=== PATIENT | female | born 1975 | race Caucasian/White ===

== ENCOUNTER 2017-03-13 00:35 | Observation (INO) | payer OTHER ==
[2017-03-13 02:08] LABS: Basophils % (Auto) 0.6 % (0.0-1.8); Eosinophils % (Auto) 1.2 % (0.0-4.3); Hematocrit 40.7 % (30.3-42.9); Hemoglobin 13.7 gm/dl (10.1-14.3); Mean Corpuscular HGB Conc 34 % (30-34); Mean Corpuscular Hemoglobin 27 pg (28-32); Mean Corpuscular Volume 81 fl (79-97); Platelet Count 314 K/mm3 (140-440); Red Blood Count 5.01 M/mm3 (3.65-5.03); Red Cell Distribution Width 15.1 % (13.2-15.2); White Blood Count 12.9 K/mm3 (4.5-11.0)
[2017-03-13 02:25] LABS: Alanine Aminotransferase 122 units/L (7-56); Albumin 4.1 g/dL (3.9-5); Albumin/Globulin Ratio 1.1 %; Alkaline Phosphatase 121 units/L (35-129); Anion Gap 17 mmol/L; BUN/Creatinine Ratio 16.66; Blood Urea Nitrogen 10 mg/dL (7-17); Calcium 8.9 mg/dL (8.4-10.2); Carbon Dioxide 28 mmol/L (22-30); Chloride 95.5 mmol/L (98-107); Glucose 113 mg/dL (65-100); Lipase 31 units/L (13-60); Potassium 3.6 mmol/L (3.6-5.0); Sodium 137 mmol/L (137-145)
[2017-03-13 03:38] LABS: Mucus,Urine 1+ /HPF
[2017-03-13 03:47] LABS: Bilirubin,Urine NEG (Negative); Blood,Urine SM (Negative); Ketones,Urine NEG (Negative); Leukocyte Esterase,Urine NEG (Negative); Nitrite,Urine NEG (Negative); Protein,Urine <15 mg/dL mg/dL (Negative)
[2017-03-13] MEDS ORDERED: REGLAN IV ONE (05:17)
[2017-03-13] MEDS ORDERED: PEPCID IV ONE (05:17)
--- NOTE | 2017-03-13 05:23 | Emergency Department Report ---
HPI - HPI HPI: Patient is a 42-year-old female a history of hypertension on medication presents to ED complaining of mid upper abdominal pain that started last night patient states after she ate dinner she started to experience sharp, pain in her abdomen. Patient states she took Pepto-Bismol and was a bit relieved and then later on the pain started patient states she took another dose of Pepto- Bismol with no relief. Patient states at midnight the pain got worse so she came to the ED. Patient describes pain as a churning type pain that has no relief when she burps. Patient denies any diarrhea, fever, vomiting, chest pain. Patient states pain is sometimes in her mid back region. <DAVE MARSHALL - Last Filed: 03/13/17 06:59> <LLUVIA RODRIGEZ - Last Filed: 03/13/17 10:21> - General Chief Complaint: Abdominal Pain Time Seen by Provider: 03/13/17 03:45 ED Past Medical Hx - Past Medical History Previous Medical History?: Yes Hx Hypertension: Yes - Surgical History Past Surgical History?: No - Social History Smoking Status: Never Smoker Substance Use Type: None <DAVE MARSHALL - Last Filed: 03/13/17 06:59> ED Review of Systems ROS: Stated complaint: ABD PAIN Other details as noted in HPI Constitutional: denies: chills, fever Eyes: denies: eye pain, eye discharge, vision change ENT: denies: ear pain, throat pain Respiratory: denies: cough, shortness of breath, wheezing Cardiovascular: denies: chest pain, palpitations Endocrine: no symptoms reported Gastrointestinal: denies: abdominal pain, nausea, diarrhea Genitourinary: denies: urgency, dysuria, discharge Musculoskeletal: denies: back pain, joint swelling, arthralgia Skin: denies: rash, lesions Neurological: denies: headache, weakness, paresthesias Psychiatric: denies: anxiety, depression Hematological/Lymphatic: denies: easy bleeding, easy bruising <DAVE MARSHALL - Last Filed: 03/13/17 06:59> ROS: Stated complaint: ABD PAIN Other details as noted in HPI <LLUVIA RODRIGEZ - Last Filed: 03/13/17 10:21> Physical Exam - Physical Exam Vital Signs: Vital Signs 03/13/17 01:09 Temperature 98 F Pulse Rate 78 Respiratory 18 Rate Blood Pressure 149/93 O2 Sat by Pulse 100 Oximetry General: GENERAL: Alert and oriented x3, no apparent distress, Normal Gait, atraumatic. HEAD: Head is normocephalic and a-traumatic. EYES: Extra ocular muscles are intact. Pupils are equal, round, and reactive to light and accommodation. EARS: symetrical, atraumatic, non tender, ear canal clear and moderate cerumen, tympanic membrance non inflamed. gross auditory nml bilaterally. NOSE: Nose symetrical, Nontender,Nares appeared normal. MOUTH:Mouth is well hydrated and without lesions. Tonsils nonerythematous or swollen, Uvula midline, Tongue not elevated. Mucous membranes are moist. Posterior pharynx clear, no exudate or lesions. Patent airways. NECK: Supple. Non edematous, No carotid bruits. No lymphadenopathy or thyromegaly. No C-spine tenderness LUNGS: Symetrical with respiration, No wheezing, no rales or crackles, CTAB. HEART: S1, S2 present, regular rate and rhythm without murmur, no rubs, no gallops. Non tender to palpation ABDOMEN: No organomegaly was noted,Positive bowel sounds, soft, and non- distended. . tender to palpation on upper mid Quadrant, NO CVA tenderness. BACK: Full range of motion, no spinal tenderness, nontender to palpation. PSYCHIATRIC: Mood is congruent with affect, denies suicidal or homicidal ideations. SKIN: Warm and dry, No lesions, No ulceration or induration present. <DAVE MARSHALL - Last Filed: 03/13/17 06:59> - Physical Exam Vital Signs: Vital Signs 03/13/17 01:09 Temperature 98 F Pulse Rate 78 Respiratory 18 Rate Blood Pressure 149/93 O2 Sat by Pulse 100 Oximetry <LLUVIA RODRIGEZ - Last Filed: 03/13/17 10:21> ED Course Vital Signs 03/13/17 01:09 Temperature 98 F Pulse Rate 78 Respiratory 18 Rate Blood Pressure 149/93 O2 Sat by Pulse 100 Oximetry - Reevaluation(s) Reevaluation #1: Patient is resting comfortable in the ED room, sleeping, she states she feels much better. She is about to be taken to CT 03/13/17 06:24 <DAVE MARSHALL - Last Filed: 03/13/17 06:59> Vital Signs 03/13/17 01:09 Temperature 98 F Pulse Rate 78 Respiratory 18 Rate Blood Pressure 149/93 O2 Sat by Pulse 100 Oximetry - Reevaluation(s) Reevaluation #2: 03/13/17 09:54 Patient is resting in bed comfortably with no signs of distress. Reevaluation #3: 03/13/17 09:56 Patient was notified of admission and agrees to the treatment plan with no signs noted by the patient. - Consultations Consultation #1: 03/13/17 09:55 Dr. Gallegos consulted about patient and agrees to admission and treatment plan in the ED. Consultation #2: 03/13/17 10:[address] Guerrero and accepted patient to his services. <LLUVIA RODRIGEZ - Last Filed: 03/13/17 10:21> ED Medical Decision Making - Lab Data Result diagrams: 03/13/17 01:40 03/13/17 01:40 Laboratory Results - last 24 hr 03/13/17 03/13/17 03/13/17 01:21 01:40 01:40 WBC 12.9 H RBC 5.01 Hgb 13.7 Hct 40.7 MCV 81 MCH 27 L MCHC 34 RDW 15.1 Plt Count 314 Lymph % (Auto) 17.3 Burt % (Auto) 8.0 H Eos % (Auto) 1.2 Baso % (Auto) 0.6 Lymph # 2.2 Burt # 1.0 H Eos # 0.2 Baso # 0.1 Seg Neutrophils % 72.9 H Seg Neutrophils # 9.4 H Sodium 137 Potassium 3.6 Chloride 95.5 L Carbon Dioxide 28 Anion Gap 17 BUN 10 Creatinine 0.6 L Estimated GFR > 60 BUN/Creatinine Ratio 16.66 Glucose 113 H Calcium 8.9 Total Bilirubin 1.10 AST 195 H ALT 122 H Alkaline Phosphatase 121 Total Protein 8.0 Albumin 4.1 Albumin/Globulin Ratio 1.1 Lipase 31 HCG, Qual Urine Color Yellow Urine Turbidity Clear Urine pH 5.0 Ur Specific Scalf 1.019 Urine Protein <15 mg/dl Urine Glucose (UA) Neg Urine Ketones Neg Urine Blood Sm Urine Nitrite Neg Ur Reducing Substances Not Reportable Urine Bilirubin Neg Urine Ictotest Not Reportable Urine Urobilinogen 4.0 Ur Leukocyte Esterase Neg Urine WBC (Auto) 2.0 Urine RBC (Auto) 1.0 U Epithel Cells (Auto) 2.0 Urine Mucus 1+ 03/13/17 01:40 WBC RBC Hgb Hct MCV MCH MCHC RDW Plt Count Lymph % (Auto) Burt % (Auto) Eos % (Auto) Baso % (Auto) Lymph # Burt # Eos # Baso # Seg Neutrophils % Seg Neutrophils # Sodium Potassium Chloride Carbon Dioxide Anion Gap BUN Creatinine Estimated GFR BUN/Creatinine Ratio Glucose Calcium Total Bilirubin AST ALT Alkaline Phosphatase Total Protein Albumin Albumin/Globulin Ratio Lipase HCG, Qual Negative Urine Color Urine Turbidity Urine pH Ur Specific Scalf Urine Protein Urine Glucose (UA) Urine Ketones Urine Blood Urine Nitrite Ur Reducing Substances Urine Bilirubin Urine Ictotest Urine Urobilinogen Ur Leukocyte Esterase Urine WBC (Auto) Urine RBC (Auto) U Epithel Cells (Auto) Urine Mucus - Radiology Data Radiology results: report reviewed, image reviewed FINAL REPORT PROCEDURE: CT ABDOMEN PELVIS W CON TECHNIQUE: Computerized axial tomography of the abdomen and pelvis was performed after the IV injection of iodinated nonionic contrast. HISTORY: upper quad mid abd pain COMPARISON: No prior studies are available for comparison. FINDINGS: Visualized lower thorax: No significant abnormality. Liver: Normal size and attenuation. Spleen: Normal size and attenuation. Gallbladder and biliary system: The gallbladder lumen is slightly distended. Mild prominence of the common bile duct. No stones are detected on this study. Further evaluation with ultrasound is recommended.. Pancreas: Normal. Adrenals: Normal. Kidneys: Normal. GI tract: The stomach is normal. The small bowel has a normal caliber without obstruction. No ileus or enteritis. The cecum, appendix and colon are normal.. Lymph nodes and mesentery: Normal. Vasculature: Normal. Bladder: There is some thickening of the urinary bladder wall. Cystitis is possible.. Reproductive organs: The uterus is normal. There is a cystic structure in the left ovary adnexal region this measures up to 6.7 x 3.8 centimeters. A large cyst on the left ovary is suspected. Further evaluation with ultrasound is recommended.. Peritoneum: No free fluid. Musculoskeletal structures: No significant abnormality. Other: None. IMPRESSION: There is no evidence of intestinal or urinary tract obstruction. No ileus or enteritis. Slightly distended gallbladder lumen with slight prominence of the common bile duct. Further evaluation with ultrasound is recommended. Large cystic mass in the left adnexal ovary region this measures up to 6.7 centimeters, further evaluation with ultrasound is recommended. Slight thickening of the urinary bladder wall, cystitis is possible. Transcribed By: [facility] Dictated By: ELISABETH DAVIS MD Electronically Authenticated By: ELISABETH DAVIS MD Signed Date/Time: 03/13/17 0651 - Medical Decision Making 42-year-old female presents with ED course: CBC, CMP, urinalysis, CTs scan of the abdomen ordered CBC shows mild leukocytosis, elevated AST and ALTs, urinalysis negative CT scan of the abdomen shows: Results indicated above Discussed findings with patient. Need to r/o cholecystitis, Abdominal ultrasound ordered.: Results pending Patient was signed to my colleague Lluvia Rodrigez NP <DAVE MARSHALL - Last Filed: 03/13/17 06:59> - Lab Data Result diagrams: 03/13/17 01:40 03/13/17 01:40 - Medical Decision Making Patient is resting comfortably and hemodynamically stable. Dr. Pereyra was consulted and examined the patient. Agrees to admission for acute cholecystitis. Instructed patient to received Zosyn 3.375 g IV in the ED. Patient was put on a monitoring specialist with O2 2 L. Patient is nothing by mouth. Dr. Guerrero was consulted about patient and agrees to accepting patient to his services. <LLUVIA RODRIGEZ - Last Filed: 03/13/17 10:21> Critical care attestation.: If time is entered above; I have spent that time in minutes in the direct care of this critically ill patient, excluding procedure time. <DAVE MARSHALL - Last Filed: 03/13/17 06:59> Critical care attestation.: If time is entered above; I have spent that time in minutes in the direct care of this critically ill patient, excluding procedure time. <LLUVIA RODRIGEZ - Last Filed: 03/13/17 10:21> ED Disposition <DAVE MARSHALL - Last Filed: 03/13/17 06:59> Is pt being admited?: Yes <LLUVIA RODRIGEZ - Last Filed: 03/13/17 10:21> Clinical Impression: Acute cholecystitis Disposition: DC-09 OP ADMIT IP TO THIS HOSP Condition: Stable
[2017-03-13] MEDS ORDERED: NACL 0.9% 1000 ML 1,000 ML IV ONE (05:24)
[2017-03-13] MEDS ORDERED: NACL ONE (05:31)
--- NOTE | 2017-03-13 06:57 | Cat Scan Report ---
FINAL REPORT PROCEDURE: CT ABDOMEN PELVIS W CON TECHNIQUE: Computerized axial tomography of the abdomen and pelvis was performed after the IV injection of iodinated nonionic contrast. HISTORY: upper quad mid abd pain COMPARISON: No prior studies are available for comparison. FINDINGS: Visualized lower thorax: No significant abnormality. Liver: Normal size and attenuation. Spleen: Normal size and attenuation. Gallbladder and biliary system: The gallbladder lumen is slightly distended. Mild prominence of the common bile duct. No stones are detected on this study. Further evaluation with ultrasound is recommended.. Pancreas: Normal. Adrenals: Normal. Kidneys: Normal. GI tract: The stomach is normal. The small bowel has a normal caliber without obstruction. No ileus or enteritis. The cecum, appendix and colon are normal.. Lymph nodes and mesentery: Normal. Vasculature: Normal. Bladder: There is some thickening of the urinary bladder wall. Cystitis is possible.. Reproductive organs: The uterus is normal. There is a cystic structure in the left ovary adnexal region this measures up to 6.7 x 3.8 centimeters. A large cyst on the left ovary is suspected. Further evaluation with ultrasound is recommended.. Peritoneum: No free fluid. Musculoskeletal structures: No significant abnormality. Other: None. IMPRESSION: There is no evidence of intestinal or urinary tract obstruction. No ileus or enteritis. Slightly distended gallbladder lumen with slight prominence of the common bile duct. Further evaluation with ultrasound is recommended. Large cystic mass in the left adnexal ovary region this measures up to 6.7 centimeters, further evaluation with ultrasound is recommended. Slight thickening of the urinary bladder wall, cystitis is possible.
--- NOTE | 2017-03-13 08:57 | Ultrasound Report ---
ULTRASOUND ABDOMEN COMPLETE: Technique: Transabdominal ultrasound with color Doppler interrogation. History: Right upper quadrant abdominal pain. Findings: CT abdomen pelvis with contrast performed the same day was reviewed. The liver is normal size, contour and echotexture. The gallbladder is not distended but there is mild diffuse gallbladder wall thickening measuring 4.9 mm. A mild degree of sludge is noted near the gallbladder neck. No discrete shadowing gallstones are appreciated. The CBD measures 5 mm. The visualized portions of the pancreas including the head and proximal body are within normal limits. The kidneys demonstrate no hydronephrosis or mass. Cortical thickness and echogenicity are within normal limits bilaterally. The spleen and aorta are within normal limits. No aneurysmal dilatation is noted. No ascites. IMPRESSION: Sludge in the gallbladder. Mild gallbladder wall thickening but no abnormal distention or pericholecystic fluid. These findings are equivocal for acute cholecystitis.
[2017-03-13] MEDS ORDERED: ZOSYN/NS 3.375GM/50ML 3.375 GM/50 ML BAG IV ONE (10:00)
--- NOTE | 2017-03-13 10:58 | Admit Criteria Form ---
Admission Criteria Documentation: GALLBLADDER OR BILE DUCT INFLAMMATION OR STONE Clinical Indications for Admission to Inpatient Care ( zuni/check or initial the applicable condition/criteria) Admission is indicated for patients with ANY ONE of the following(1)(2)(3)(4)(5) (6): [X]I. Acute cholecystitis as indicated by ALL of the following: [ X] a) Right upper quadrant pain, mass, or tenderness [ X] b) Systemic signs of inflammation indicated by ANY ONE of the following: i) Fever ii) C-reactive protein level greater than 10 mg/L (95 nmol/L) [ X] iii) White blood cell count greater than 10,000/mm3 (10 x10 9/L) or less than 4000/mm3 (4 x10 9/L) II. Acute cholangitis as indicated by ALL of the following(9)(10): a) Systemic signs of inflammation indicated by ANY ONE of the following: i) Fever ii) C-reactive protein level greater than 10 mg/L (95 nmol/L) iii) White blood cell count greater than 10,000/mm3 (10 x109/L ) or less than 4000/mm3 (4 x109/L) b) Evidence of common bile duct disease indicated by ANY ONE of the following: [ ]i) Total serum bilirubin level greater than or equal to 2 mg/dL (34 micromoles/L) [ ]ii) Liver function test (alkaline phosphatase (ALP), r- glutamyltransferase (GGT), aspartate aminotransferase (AST), or alanine aminotransferase (ALT)) greater than 1.5 times the upper limit of normal[B] [ ]iii) Hepatobiliary imaging showing biliary dilatation or evidence of etiology (eg, stricture, stone, previously placed stent) III. Inpatient admission[c] required rather than observation care (Also use Gallbladder or Bile Duct Inflammation or Stone: Observation Care as appropriate) because of ANY ONE of the following( 11): a) Common bile duct obstruction diagnosed (eg, by imaging) b) Vomiting that is severe or persistent c) Dehydration that is severe or persistent d) Hemodynamic instability e) Severe pain requiring acute inpatient management f) Absent bowel sounds with complete ileus(12) g) Signs of intestinal obstruction or peritonitis[D] h) Percutaneous or open drainage (eg, abscess, biliary tract) procedures i) Other condition, treatment or monitoring requiring inpatient admission j) High fever or infection requiring inpatient admission as indicated by ANY ONE of the following (13): i) Appropriate outpatient or observation care antimicrobial Treatment. unavailable, not effective, or not feasible ii) Documented bacteremia iii) Temperature greater than 104.9 degrees F (40.5 degrees C) ( oral) iv) Temperature greater than 103.1 degrees F (39.5 degrees C) ( oral) or less than 96.8 degrees F (36 degrees C) (rectal) that does not respond to all emergency treatment measures The original [facility] content created by [facility] [employer] has been revised. The portions of the content which have been revised are identified through the use of italic text or in bold, and [facility] has neither reviewed nor approved the modified material. All other unmodified content is copyright [facility]. Please see references footnoted in the original [facility] edition 2017 Admission Criteria Met: Yes
[2017-03-13] MEDS ORDERED: ZOSYN/NS 3.375GM/50ML 50 ML IV SCH (12:00)
--- NOTE | 2017-03-13 12:08 | History and Physical Report ---
History of Present Illness Date of examination: 03/13/17 Date of admission: 03/13/17 10:14 Chief complaint: epigastric abd pain History of present illness: Pleasant 42 year female with 12-24 hr hx of severe epigastric pain, 10/10, some nausea, WBC 12K, AST /ALT elevated, T bili normal, CT abd pelvis questions GB otherwise WNL, u/s RUQ, sludge, mild wall thickening, no pericholecystic fluid. No hx of jaundice or hepatitis. Past History Past Surgical History: Other (one child, uncomplicated delivery.) Social history: no significant social history Medications and Allergies Allergies Allergy/AdvReac Type Severity Reaction Status Date / Time No Known Allergies Allergy Unverified 03/13/17 01:08 Home Medications Medication Instructions Recorded Confirmed Last Taken Type FLUoxetine HCL [FLUoxetine] 60 mg PO QDAY 03/13/17 03/13/17 03/12/17 History Fluticasone [Flonase] 1 spray NS QDAY 03/13/17 03/13/17 03/12/17 History Hydrochlorothiazide [HCTZ] 25 mg PO QDAY 03/13/17 03/13/17 03/12/17 History Review of Systems - Constitutional other (RUQ abd pain) Exam Vital Signs Temp Pulse Resp BP Pulse Ox 98 F 78 18 149/93 100 03/13/17 01:09 03/13/17 01:09 03/13/17 01:09 03/13/17 01:09 03/13/17 01:09 - General physical appearance Positive: no distress - Eyes Positive: PERRL, normal occular movement - ENT Positive: normal pinna, normal nares, normal mucosa, no hearing loss, no congestion - Neck Positive: no masses, no bruits, trachea midline, no venous distension - Respiratory Positive: normal expansion, normal respiratory effort, clear to auscultation - Cardiovascular Rhythm: regular Heart Sounds: Present: S1 & S2. Absent: rub, click - Extremities Extremities: no ischemia, pulses symmetrical, No edema Peripheral Pulses: within normal limits - Breasts Breasts: normal - Abdomen Abdomen: Present: soft, bowel sounds normal (tender to deep palpation RUQ, negative Mora's sign.) Hernia: none - Neurologic Neurologic: alert and oriented to time, place and person, motor strength and sensation are grossly intact Results - Labs 03/13/17 01:40 03/13/17 01:40 Assessment and Plan abd pain, CT , ultrasound findings noted Get HIDA scan.r/o cystic duct obstruction.
[2017-03-13] MEDS ORDERED: DULCOLAX PR PRN (12:09)
[2017-03-13] MEDS ORDERED: ZOFRAN IV PRN (12:09)
[2017-03-13] MEDS ORDERED: TYLENOL PO PRN (12:09)
[2017-03-13] MEDS ORDERED: MORPHINE IV PRN (12:09)
[2017-03-13] MEDS ORDERED: MILK OF MAGNESIA PO PRN (12:09)
[2017-03-13] MEDS ORDERED: D5NS 1,000 ML IV SCH (13:00)
[2017-03-13] MEDS ORDERED: ZOSYN/NS 4.5GM/100ML 4.5 GM/100 ML VIAL IV SCH (14:00)
[2017-03-13] MEDS ORDERED: KINEVAC IV ONE ×2 (14:46→14:48)
[2017-03-13] MEDS ORDERED: WATER FOR INJ (PF) IV ONE (14:47)
[2017-03-13] MEDS ORDERED: WATER FOR INJ (PF) 10 ML ONE (14:48)
--- NOTE | 2017-03-13 15:07 | Discharge Summary ---
Providers - Providers Date of Admission: 03/13/17 10:14 Date of discharge: 03/13/17 Attending physician: JORDY HANEY Primary care physician: [employer]IC[employer] Hospitalization Reason for admission: abd pain Condition: Good Pertinent studies: CT abd pelvis, ultrasound RUQ, HIDA scan Hospital course: Pt seen in ER with severe epigastric RUQ pain, WBC 12, AST /ALT elevated, Tbili normal, CT abd pelvis questioned GB, recc u/s GB, sludge , mild wall thickening , no pericholecystic fluid, HIDA scan with prompt visualization of GB; Pt discharged home. F/U at [place] with her primary care. Disposition: DC- TO HOME OR SELFCARE Time spent for discharge: 20 min Core Measure Documentation - Palliative Care Palliative Care/ Comfort Measures: Not Applicable - Core Measures Any of the following diagnoses?: none Exam - Constitutional Vitals: Temp Pulse Resp BP Pulse Ox 97.6 F 56 L 18 123/79 99 03/13/17 12:18 03/13/17 12:18 03/13/17 12:18 03/13/17 12:18 03/13/17 12:18 General appearance: Present: no acute distress - EENT Eyes: Present: PERRL ENT: hearing intact, clear oral mucosa - Neck Neck: Present: supple, normal ROM - Respiratory Respiratory effort: normal - Cardiovascular Rhythm: regular Heart Sounds: Present: S1 & S2. Absent: rub, click - Extremities Extremities: no ischemia, pulses intact Peripheral Pulses: within normal limits - Abdominal General gastrointestinal: Present: soft, non-tender (negative Mora's sign, right upper quadrant tenderness resolved.), non-distended, normal bowel sounds - Psychiatric Psychiatric: appropriate mood/affect, intact judgment & insight - Neurologic Neurologic: CNII-XII intact, moves all extremities Plan Weight Bearing Status: Full Weight Bearing Diet: low fat (lev) Wound: open to air Follow up with: PRIMARY CARE, [Primary Care Provider] - 7 Days Prescriptions: Levofloxacin [Levaquin TAB] 500 mg PO Q24HR #7 tablet oxyCODONE /ACETAMINOPHEN [Percocet 5/325 mg] 1 tab PO Q6H PRN #10 tablet PRN Reason: Pain, Moderate (4-6)
[2017-03-13] MEDS ORDERED: PERCOCET 5/325 PO PRN (15:10)
--- NOTE | 2017-03-13 15:38 | Nuclear Medicine Report ---
NUCLEAR MEDICINE HEPATOBILIARY SCAN WITH CCK History: Right upper quadrant abdominal pain, evaluate for cholecystitis. Findings: Anterior abdominal images were obtained for 2 hours after 5 mCi of technetium 99m Choletec. There is homogeneous uptake of the radiotracer by the liver parenchyma. There is normal appearance of the radiotracer in the central biliary ducts, gallbladder and common bile duct. There is however delayed visualization of the radiotracer in the small bowel loops. Please note that the patient received morphine in the emergency department which contracts the sphincter of Oddi and makes this study very limited. After the administration of CCK, the gallbladder ejection fraction measures 0%. The patient reports the same pain, cramps and nausea following the infusion of CCK. Impression: The cystic duct is patent. No evidence for acute cholecystitis. There is nonvisualization of the radiotracer in the small bowel. This could suggest partial obstruction of the common bile duct. This study is compromised because the ER physician administered morphine in the emergency department which could account for these findings as well. I cannot rule in or rule out sludge or small stone in the distal common bile duct. I suspect this is secondary to morphine administration. These findings were discussed with Dr. Guerrero at 1531 hrs.
[2017-03-13 16:38] VITALS: BP 122/78
--- NOTE | 2017-03-14 02:40 | Discharge Summary ---
HOSPITAL COURSE: This is a 42-year-old female who presented to the Emergency Room with severe 9/10 epigastric right upper quadrant pain with mild nausea. She presented to the Emergency Room and her lab work showed a white count of 12,000. Her AST and ALT were mildly elevated at 195 for AST and 122 for her ALT and her alkaline phosphatase were normal. Her total bilirubin was normal. Her lipase was normal. Her test was negative. She subsequently underwent a CT scan of the abdomen and pelvis that demonstrated a question of the gallbladder lumen being slightly distended, mild prominence of the common duct( but diameter of CBD was normal with no dialation of proximal bile ducts.. No stones were detected and as a result, the report recommended an ultrasound of the right upper quadrant. The patient had an ultrasound of the right upper quadrant, which demonstrated sludge in the gallbladder, mild gallbladder wall thickening but no abnormal distention or pericholecystic fluid. The findings were equivocal. The patient's pain did improve, but she underwent a HIDA scan or bile acid absorption test with CCK. The findings demonstrated prompt visualization of the gallbladder. The cystic duct was patent. There was no evidence for acute cholecystitis. There was a question of some nonvisualization of radiotracer in the small bowel, but even though the patient was believed that the patient gave a history that she received narcotics in the Emergency Room, she said she felt immediate relief of pain and sleepy when she received the medication. The pain has completely resolved. She was told to advance to a low fat diet. I discharged her to home. I gave a prescription for Levaquin for 5 days, 500 mg p.o. q. day. I gave her about 10-15 Percocets for pain. I told if the pain recurred, I gave her one of my office cards with my answering service to call me or just simply come to the Emergency Room. She was pain free at the time of discharge. JOB# [id number] MAMI/PHILOMENA MCDANIEL
[2017-03-14] MEDS ORDERED: LEVAQUIN PO SCH (10:00)
== END 2017-03-13 20:10 | disposition home or self-care (01) ==
LOC: ED 00:35 → INTOOBSV 10:14 → 2B-SURG 10:14
PROVIDERS: ADMIT Surgery; ATTEND Surgery
DX: K82.8 Other specified diseases of gallbladder (principal); R11.0 Nausea; I10 Essential (primary) hypertension; Z79.899 Other long term (current) drug therapy
CPT/HCPCS: 36415; 74177; 76700; 78227; 80053; 81001; 83690; 84703; 85025; 96361; 96365; 96375; 99285; A9537; G0378; J2543; J2765; J2805; J7030; Q9967; 96374